=== PATIENT | female | born 1990 | race Caucasian/White ===

== ENCOUNTER 2022-12-04 11:48 | Emergency (ER) | payer OTHER ==
[~2022-12-04] VITALS: Ht 170.2 cm; Wt 66.7 kg
[2022-12-04 12:04] VITALS: BP 111/83
[2022-12-04] MEDS: NACL 0.9% 2,000 ML IV ONE (12:40)
[2022-12-04] MEDS: ONDANSETRON 4 MG/2 ML VIAL IVP ONE (12:42)
[2022-12-04 13:01] LABS: BASOPHILS # (AUTO) 0.1 K/uL (0.00-0.22); BASOPHILS % (AUTO) 0.4 % (0.0-2.0); HEMOGLOBIN 16.9 g/dL (12.0-16.0); LYMPHOCYTES # (AUTO) 0.8 K/uL (2.5-16.5)
[2022-12-04 13:08] LABS: HEMATOCRIT 48.7 % (36-48); LYMPHOCYTES % (AUTO) 5.1 % (20.5-51.1); MEAN CORPUSCULAR HEMOGLOBIN 32 pg (27-31); MEAN CORPUSCULAR HGB CONC 35 g/dL (33-37); MEAN CORPUSCULAR VOLUME 93.5 fL (80-94); MONOCYTES # (AUTO) 1.7 K/uL (0.8-1.0); NEUTROPHILS # (AUTO) 14.1 K/uL (1.8-7.7); NEUTROPHILS % (AUTO) 84.5 % (42.2-75.2); PLATELET COUNT (AUTO) 327 K/uL (140-450); RED BLOOD CELL COUNT(AUTO) 5.21 MIL/uL (4.20-5.40); RED CELL DISTRIBUTION WIDTH 13.5 % (11.6-13.7); WHITE BLOOD COUNT (AUTO) 16.7 K/uL (4.8-10.8)
[2022-12-04 14:22] LABS: ALBUMIN 6.1 g/dL (3.4-5.0); ANION GAP 32.7 (8-16); CARBON DIOXIDE 17.3 mmol/L (21-32); CREATININE 1.7 mg/dL (0.6-1.3)
[2022-12-04] MEDS: NACL 0.9% 1,000 ML IV ONE (15:32)
[2022-12-04 16:48] VITALS: BP 118/87
[2022-12-04 16:54] LABS: ALBUMIN 4.6 g/dL (3.4-5.0); ANION GAP 20.7 (8-16); CARBON DIOXIDE 22.5 mmol/L (21-32); CREATININE 1.1 mg/dL (0.6-1.3); POTASSIUM 3.2 mmol/L (3.5-5.1); TOTAL BILIRUBIN 1.7 mg/dL (0.0-1.0)
[2022-12-04] MEDS ORDERED: ONDA-188 PO (17:05)
== END 2022-12-04 17:26 | disposition home or self-care (01) ==
LOC: MED 11:48
DX: R11.10 Vomiting, unspecified (principal); E86.0 Dehydration; R00.0 Tachycardia, unspecified; R10.13 Epigastric pain; F12.90 Cannabis use, unspecified, uncomplicated; Z79.899 Other long term (current) drug therapy
CPT/HCPCS: 36415; 76705; 80053; 82150; 83690; 85025; 93005; 96361; 96374; 99285; J2405; J7030; Q0092